=== PATIENT | male | born 1995 | race Caucasian/White ===

== ENCOUNTER 2017-03-11 15:25 | Emergency (ER) | payer OTHER ==
[~2017-03-11] VITALS: Ht 175.3 cm; Wt 68.2 kg
[2017-03-11] MEDS ORDERED: NS 1,000 ML IV ONE (15:45)
[2017-03-11 16:15] LABS: BASO % 0.5 % (0.0-1.0); EOS # 0.1 10^3/uL (0.0-0.50); EOS % 0.9 % (0.0-3.0); IMMATURE GRANULOCYTE % 0.5 % (0-0); LYMPH # 1.7 10^3/uL (1.5-6.5); LYMPH % 22.2 % (24.0-44.0); MEAN CORPUSCULAR HEMOGLOBIN 31.1 pg (27.0-33.0); MEAN CORPUSCULAR HGB CONC 35.5 g/dl (32.0-36.5); MEAN CORPUSCULAR VOLUME 87.7 fl (80.0-96.0); MONO # 0.6 10^3/uL (0.0-0.8); MONO % 7.9 % (0.0-5.0); NEUTROPHILS # 5.3 10^3/uL (1.8-7.7); PLATELET COUNT, AUTOMATED 202 10^3/uL (150-450); WHITE BLOOD COUNT 7.7 10^3/uL (4.0-10.0)
[2017-03-11 16:34] LABS: ALBUMIN 4.1 GM/DL (3.2-5.2); ALBUMIN/GLOBULIN RATIO 1.28 (1.00-1.93); ALKALINE PHOSPHATASE 70 U/L (45-117); ALT/SGPT 27 U/L (12-78); ANION GAP 6 MEQ/L (8-16); AST/SGOT 16 U/L (15-37); BILIRUBIN,DIRECT 0.1 MG/DL (0.0-0.2); BILIRUBIN,TOTAL 0.5 MG/DL (0.2-1.0); BLOOD UREA NITROGEN 14 MG/DL (7-18); CARBON DIOXIDE LEVEL 28 MEQ/L (21-32); CHLORIDE LEVEL 103 MEQ/L (98-107); CREATININE FOR GFR 0.77 MG/DL (0.70-1.30); GLOMERULAR FILTRATION RATE > 60.0 (>60); GLUCOSE, FASTING 110 MG/DL (70-105); POTASSIUM SERUM 3.9 MEQ/L (3.5-5.1); SODIUM LEVEL 137 MEQ/L (136-145); TOTAL PROTEIN 7.3 GM/DL (6.4-8.2)
--- NOTE | 2017-03-11 16:52 | REP ---
LEFT ELBOW, FOUR VIEWS: HISTORY: Pain. There are fractures of the head of the radius, distal humerus and proximal ulna. There is posterior dislocation of the radius and ulna with respect to the distal humerus. Subcutaneous air is present in the overlying soft tissue. IMPRESSION:Fracture dislocation as described above. Signed by Toño Waldrop MD 03/11/2017 05:05 P
--- NOTE | 2017-03-11 16:53 | REP ---
LEFT SHOULDER, THREE VIEWS: HISTORY: Fall. There is no acute fracture or dislocation. The joint spaces are normal in appearance. IMPRESSION:There is no acute fracture or dislocation. Signed by Toño Waldrop MD 03/11/2017 05:05 P
[2017-03-11] MEDS ORDERED: NS 1,000 ML IV SCH (17:14)
[2017-03-11] MEDS ORDERED: PROPOFOL 200 MG/20 ML VIAL As Ordered ONE (17:14)
[2017-03-11] MEDS ORDERED: ONDANSETRON 4MG/2ML VIAL (J2405) IV ONE (17:15)
[2017-03-11] MEDS ORDERED: KETAMINE HCL 200 MG/20 ML VIAL IV ONE (17:15)
[2017-03-11 17:30] VITALS: O2SAT 100
[2017-03-11] MEDS: PROPOFOL 200 MG/20 ML VIAL IV PRN ×3 (17:37→17:46)
[2017-03-11 19:53] VITALS: BP 196/100
--- NOTE | 2017-03-11 22:25 | ER ---
DATE OF CONSULTATION: 03/11/2017 INDICATION: Open left elbow fracture/dislocation. 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 There was a deformity and bleeding from a small poke hole from an open fracture. He was transferred to [facility] where x-rays showed a Monteggia's variant with a dislocation of both the ulnohumeral and radial head with a comminuted fracture of the radial head. When I was called, the patient had already been given a dose of IV antibiotics. In speaking to me, he denied numbness or tingling in his hands or pain in his wrist. He had some soreness in shoulder. PAST MEDICAL HISTORY: None. PAST SURGICAL HISTORY: None. ALLERGIES: No known drug allergies. SOCIAL HISTORY: The patient does not smoke, abuse alcohol or illicit drugs. He is active duty at [employer]. He is with his significant other. Radiology x-rays, two views left shoulder do not reveal any fractures. Three views left elbow reveal a dislocation of the ulnohumeral joint, a radial head dislocation, comminuted displaced proximal ulnar shaft fracture and extensive comminution and joint depression of the radial head. PHYSICAL EXAMINATION: Exam reveals a well-appearing male in no distress. He is alert and oriented times three. Neurologic: Appropriate mood and affect. Cardiovascular: 2+ radial pulse with a regular rate. Pulmonary: Regular nonlabored breathing. Skin: On the left elbow reveals a 3 mm poke hole over the proximal one-third ulna with a small amount of fat visible. No gross contamination. Forearm compartment soft and compressible. He fires to extensor pollicis longus (EPL), flexor pollicus longus (FPL), IO and extensor digitorum communis (EDC). Sensation to light touch median, radial and ulnar nerves intact. ASSESSMENT AND PLAN: Ze is a 21-year-old male with a grade 1 open left elbow fracture dislocation, Monteggia variant. I explained to the patient and the ER physician that given the comminution of the radial head recommended transfer to a tertiary care center with an elbow specialist. He will need an open reduction, internal fixation (ORIF) of the ulna likely or ORIF of the radial head, radial head replacement ideal on a patient of this age. I did recommend a preliminary closed reduction as he did not at the time have any neurologic compromise and I wanted to avoid the development of any neurovascular issues during his transfer to [place]. The risks and benefits of a closed reduction and splinting were discussed with the patient and written informed consent was obtained. PROCEDURE NOTE: The patient's left arm was marked and we performed a time-out confirming the patient's name, medical record number, date of and the correct side, site and procedure. Procedural sedation was initiated by the emergency room physician. The miniature C-Arm was available which I used to assess the reduction. With longitudinal traction on the wrist and direct palpation and direct pressure posterior to anterior on the olecranon I was able to achieve a successful reduction of the ulnohumeral joint. Radial head was still dislocated. The ulna fracture was then manipulated and with direct palpation I was able to obtain a successful closed reduction of the radial head. Lateral views using the mini C-Arm confirmed successful closed reduction of the ulnohumeral joint and the radial head. When I attempted to get an AP of the distal humerus, the joint redislocated. I repeated the same maneuver and obtained again a successful closed reduction as deemed by clinical palpation and that lateral view on the C-Arm. A moist saline 4 x 4 was placed over the open wound and wrapped with Webril. I then placed the patient into a well padded long arm posterior plaster splint with the elbow at 90 degrees as well as a lateral strut. Final lateral C-Arm image in the splint confirmed no redislocation. The patient was then allowed to wake up from procedural sedation where he was noted to be firing EPL, FPL, IO and sensation and light touch was intact, and he had a palpable radial pulse. At the time of this dictation, the patient is being promptly transferred to [place] for operative management. I explained to the patient that may happen tonight or tomorrow morning depending on available of a trauma/elbow specialist. He has been nothing by mouth (npo) since noon and his significant other was cautioned that he can absolutely not eat or drink anything on the way down to [place]. All of their questions were answered.
--- NOTE | 2017-03-12 05:48 | REP ---
Clinical: Intraoperative reduction. Technique: Intraoperative fluoroscopic imaging. Findings: Multiple intraoperative images demonstrate the patient to be status post satisfactory reduction at the elbow joint. There is an oblique fracture involving the proximal ulnar shaft and smaller fractures at the elbow are suggested but poorly identified. Total fluoroscopic time 28 seconds. Impression: Status post intraoperative reduction at the elbow joint. Oblique fracture of the proximal ulnar shaft and small fracture fragments at the elbow suspected. Signed by Otilio Bledsoe MD 03/12/2017 05:40 A
== END 2017-03-11 19:59 | disposition short-term general hospital (02) ==
LOC: M ED 15:25
DX: S52.272B Monteggia's fracture of left ulna, initial encounter for open fracture type I or II (principal); S52.122A Displaced fracture of head of left radius, initial encounter for closed fracture; S42.402A Unspecified fracture of lower end of left humerus, initial encounter for closed fracture; W11.XXXA Fall on and from ladder, initial encounter; Y92.84 Military training ground as the place of occurrence of the external cause; Y93.9 Activity, unspecified; Y99.1 Military activity; J30.81 Allergic rhinitis due to animal (cat) (dog) hair and dander
CPT/HCPCS: 24620; 73030; 73070; 73080; 80048; 80076; 85025; 93041; 96374; 96375; 99156; 99291; J0690; J2405

== ENCOUNTER 2017-09-20 05:10 | Emergency (ER) | payer OTHER ==
[2017-09-20] MEDS: levETIRAcetam INJection 750 MG in D5W 100 ML IV (05:45)
[2017-09-20 05:56] LABS: BASO % 0.5 % (0.0-1.0); EOS # 0.1 10^3/uL (0.0-0.50); EOS % 2.4 % (0.0-3.0); HEMATOCRIT 39.5 % (42.0-52.0); HEMOGLOBIN 12.8 g/dl (13.5-17.5); IMMATURE GRANULOCYTE % 0.3 % (0-3.0); LYMPH # 2.1 10^3/uL (1.5-6.5); LYMPH % 37.2 % (24.0-44.0); MEAN CORPUSCULAR HEMOGLOBIN 25.5 pg (27.0-33.0); MEAN CORPUSCULAR HGB CONC 32.4 g/dl (32.0-36.5); MEAN CORPUSCULAR VOLUME 78.7 fl (80.0-96.0); MONO # 0.7 10^3/uL (0.0-0.8); MONO % 12.2 % (0.0-5.0); NEUTROPHILS # 2.7 10^3/uL (1.8-7.7); NEUTROPHILS % 47.4 % (36.0-66.0); PLATELET COUNT, AUTOMATED 300 10^3/uL (150-450); RED BLOOD COUNT 5.02 10^6/uL (4.30-6.10); RED CELL DISTRIBUTION WIDTH 13.6 % (11.5-14.5); WHITE BLOOD COUNT 5.8 10^3/uL (4.0-10.0)
[2017-09-20 06:13] LABS: ANION GAP 7 MEQ/L (8-16); BLOOD UREA NITROGEN 11 MG/DL (7-18); CALCIUM LEVEL 8.8 MG/DL (8.5-10.1); CARBON DIOXIDE LEVEL 25 MEQ/L (21-32); CHLORIDE LEVEL 108 MEQ/L (98-107); CREATININE FOR GFR 0.84 MG/DL (0.70-1.30); GLOMERULAR FILTRATION RATE > 60.0 (>60); GLUCOSE, FASTING 95 MG/DL (70-100); POTASSIUM SERUM 3.8 MEQ/L (3.5-5.1); SODIUM LEVEL 140 MEQ/L (136-145)
== END 2017-09-20 07:22 | disposition home or self-care (01) ==
LOC: M ED 05:10
DX: G40.909 Epilepsy, unspecified, not intractable, without status epilepticus (principal); Z91.14 Patient's other noncompliance with medication regimen; J30.81 Allergic rhinitis due to animal (cat) (dog) hair and dander; Z79.899 Other long term (current) drug therapy
CPT/HCPCS: J1953